=== PATIENT | male | born 1935 | race Caucasian/White ===

== ENCOUNTER → 2016-08-03 | Outpatient (CLI) | payer MEDICARE, BC ==
[~2016-08-03] MED LIST: ALPRAZOLAM; ASPIRIN PO; ASPIRIN81 MG PO; AVANDIA; BENAZEPRIL/HCTZ PO; BENICAR HCT 40-1 TAB PO; BUMEX PO; BUMEX1 MG PO; CLOPIDOGREL BIS75 MG PO; COUMADIN PO; FISH OIL300 MG PO; FLOMAX0.4 M1 PO; FLOMAX0.4 MG; FLOMAX0.4 MG PO; GLUCOTROL PO; GLUCOTROL XL PO; HCTZ; ISOSORBIDE DINI10 MG PO; JANUMET 50-5001 EACH; JANUVIA PO; KLOR-CON PO; LEVAQUIN750 MG PO; LISINOPRIL PO; LOPRESSOR PO; METANX TABLET1 TAB; MULTI VITAMIN1 EACH PO; NEURONTIN PO; NEURONTIN300 MG PO; NIASPAN; PATIENT'S PHARMACY; PERCOLONE5 MG PO; PLAVIX PO; PREVACID; PROSCAR5 MG; PROSCAR5 MG PO; VICODIN 5/500 T1 TAB; VITAMIN D1000 UNI1 PO; VITAMIN D1000 UNI2 PO; ZESTORETIC 10/11 TAB; ZOCOR PO; ZOFRAN ODT4 MG PO
--- NOTE | ~2016-08-03 | MR18 ---
[facility] A Service of [facility] RADIOLOGY TEXT RESULTS PATIENT: GARTH VAZQUEZ LOCATION: [facility] : 37 UNIT #: [id number] AGE: [address]: Jd Pretty II, MD SEX: M ORDER DR: [id number] [address] [address] [id number] O MR#: [id number] Acc #: [id number] NAME: GARTH VAZQUEZ : 1935 SEX: M STUDY DATE/TIME: 08/03/2016 10:15 UNIT: [facility] ROOM: STUDY DESCRIPTION: MR Brain Wo Contrast Attending Physician: Jd Pretty II., M.D. Referring Physician: Jd rPetty II., M.D. Ordering Physician: Jd Pretty II., M.D. Primary Care Physician: Zayda Vazquez A.P.R.N. MRI CENTER REPORT This report is preliminary unless electronic signature is present. EXAM Brain MRI HISTORY Increasing memory loss and confusion over the past 4-5 months. TECHNIQUE Multiplanar imaging of the brain was performed, including diffusion weighted images. FINDINGS On diffusion-weighted images, there is no evidence of abnormal restricted diffusion to suggest a recent infarct. The routine brain images show atrophy with mild chronic ischemic changes around the ventricles. There is no evidence of mass lesion, hemorrhage or edema. Extraaxial structures are remarkable for mucosal thickening in the mastoid and petrous air cells bilaterally. IMPRESSION Atrophy with mild chronic ischemic changes around the ventricles. 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 No acute findings. Dictated by... Mookie Stephenson M.D. THIS IS AN ELECTRONICALLY VERIFIED REPORT Mookie Stephenson M.D. at 08/03/2016 10:17 PM RLF/pcl [facility] A Service of [facility] RADIOLOGY TEXT RESULTS PATIENT: GARTH VAZQUEZ LOCATION: [facility] : 37 UNIT #: [id number] AGE: [address]: Jd Pretty II, MD SEX: M ORDER DR: TD: 08/03/2016 16:00 JOB #: [id number] MRI CENTER REPORT Page 1 of 1
== END | disposition home or self-care (01) ==
LOC: SMRI 09:43
DX: R41.3 Other amnesia (principal); I67.82 Cerebral ischemia; G31.89 Other specified degenerative diseases of nervous system
CPT/HCPCS: 70551

== ENCOUNTER → 2016-11-19 | Day surgery (SDC) | payer MEDICARE, BC ==
--- NOTE | ~2016-11-19 | OR ---
Unit #: [id number] #: [id number] Patient: GARTH VAZQUEZ [id number] [address] [address] [id number] O MR#: [id number] NAME: GARTH VAZQUEZ ROOM: Date of Procedure: 11/19/2016 Admission Date: 11/19/2016 Surgeon: Anibal Vazquez M.D. : 1935 Attending Physician: Anibal Vazquez M.D. Primary Care Physician: Zayda Vazquez A.P.R.N. OPERATIVE REPORT PROCEDURE PERFORMED Colonoscopy with snare polypectomy. INDICATIONS FOR PROCEDURE An 81-year-old gentleman, Hemoccult-positive stool, undergoing colonoscopy for evaluation. MEDICATIONS Monitored anesthesia. POSTOPERATIVE FINDINGS 1. Two polyps, 6 to 7 mm each, one in transverse, one in descending colon, both snared and sent for histopathology. 2. Diverticulosis. 3. Internal hemorrhoids. PLAN Follow up on the pathology report. Given his age, I do not recommend any further colonoscopy. DESCRIPTION OF PROCEDURE The patient was explained of the procedure, risks, and benefits along with the risks and benefits of anesthesia. He was brought to the endoscopy room. Propofol anesthesia was given. Rectal exam was done, which was normal. Colonoscope was lubricated, passed up the rectum, advanced under direct vision all the way to the cecum. Cecum was identified by ileocecal valve and appendiceal orifice. I then started to pull the scope out carefully looking. Two polyps were seen as described. They were both snared and sent for histopathology. I retroflexed in the rectum, internal hemorrhoids were seen. The scope was gently pulled out. He tolerated it well. Dictated by... Wilfredo Samuels/ranjan TD: 11/20/2016 11:58 JOB #: [id number] Unit #: [id number] #: [id number] Patient: GARTH VAZQUEZ OPERATIVE REPORT Page 1 of 1 X Anibal Vazquez MD PROCEDURE OPERATIVE NOTE
== END | disposition home or self-care (01) ==
LOC: COPS 06:42
DX: D12.3 Benign neoplasm of transverse colon (principal); D12.4 Benign neoplasm of descending colon; K57.30 Diverticulosis of large intestine without perforation or abscess without bleeding; K64.8 Other hemorrhoids; J44.9 Chronic obstructive pulmonary disease, unspecified; I25.10 Atherosclerotic heart disease of native coronary artery without angina pectoris; K21.9 Gastro-esophageal reflux disease without esophagitis; Z95.1 Presence of aortocoronary bypass graft; Z90.49 Acquired absence of other specified parts of digestive tract; Z79.899 Other long term (current) drug therapy
CPT/HCPCS: 82947; 88305